=== PATIENT | female | born 2000 | race Caucasian/White ===

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

== ENCOUNTER 2022-07-13 13:37 | Outpatient (CLI) | payer OTHER ==
[~2022-07-13 13:37] MED LIST: BENTYL 10MG CAP10 MG PO; FLAGYL500 MG PO; ZOFRAN ODT 4 MG4 MG SL
[2022-07-13 14:23] LABS: HEMOGLOBIN 12.8 gm/dl (12.3-15.3); RED BLOOD COUNT 4.37 M/UL (4.00-5.10); WHITE BLOOD COUNT 13.6 K/UL (4.5-11.0)
== END 2022-07-13 17:03 | disposition home or self-care (01) ==
LOC: GENOP 13:37
PROVIDERS: Obstetrics & Gynecology
DX: O47.03 False labor before 37 completed weeks of gestation, third trimester (principal); Z3A.33 33 weeks gestation of pregnancy
CPT/HCPCS: 81001; 85025; G0463